=== PATIENT | female | born 1930 | race Caucasian/White ===

== ENCOUNTER 2016-09-16 06:17 | Day surgery (SDC) | payer MEDICARE, OTHER ==
--- NOTE | 2016-09-10 14:51 | PREOP HISTORY & PHYSICAL ---
HISTORY: 85 year old female here for evaluation of declining vision in both eyes over the past year or so. She is having more trouble reading ( the newspaper) as well as difficulty seeing the scrolling ermelinda on the television. She often uses a magnifying glass to read. The patient denies significant glare symptoms but does not go out at night and is no longer driving. She states that her right eye has always seen better than her left eye. She was seen last Spring by Dr. Quintero who recommended a referral for cataract evaluation. However, the patient has required recent orthopedic procedures which took precedence until now. The current glasses are about 2 years old. PAST OCULAR HISTORY: "Cataracts", Glasses OCULAR MEDICATIONS: None PAST MEDICAL HISTORY: Acquired hypothyroidism (E03.9) Recent TSH is satisfactory, continue medications as is. 2. TSH ordered in follow up, adjustments were made in the hospital. Weight is considerably decreased. Diet-controlled hyperlipidemia (E78.5) Gastroesophageal reflux disease without esophagitis (K21.9) No red flag symptoms, continue OTC PPI. Patient is very reluctant to have follow up. 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 Will be due for next Reclast infusion in July. 2. I reordered her bone density, as she did not follow through with it, and she agrees that it is very important. Paroxysmal SVT (supraventricular tachycardia) (I47.1)04/2016 Developed at [facility] after revision of total hip. Treated with adenosine, and lasted about an hour and the patient did have hypotension. TSH showed hyperthyroidism, and other contributing factors were felt to be anemia and post- operative stress. She was placed on low dose Diltiazem with good results. 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 ALLERGIES: Codeine/Codeine Derivatives (Tylenol 3, Vicodin, Percocet, Hydrocodone...)03/26 GI Distress, Urticaria FAMILY HISTORY: No Significant Family Ocular History SOCIAL HISTORY: Alcohol use Drinks Rarely. Tobacco use Never smoker. Vehicle Driving No. CURRENT MEDICATIONS: Amoxicillin (500MG Capsule, 4 Capsules Oral 1 hour before dental procedure, Taken starting 11/06/2015) Active. Aspirin EC (81MG Tablet DR, 1 (one) Oral daily, Taken starting 07/15/2016) Active. Calcium-Vitamin D ([id number] Tablet, 1 Oral two times daily, Taken starting 11/27/2011) Active. Centrum Silver (1 Oral daily) Active. DiltiaZEM CD (120MG Capsule ER 24HR, 1 (one) Capsule ER 24HR Oral daily, Taken starting 06/22/2016) Active. Levothyroxine Sodium (75MCG Tablet, 1 Oral daily, Taken starting 06/22/2016) Active. Omeprazole (20MG Capsule DR, 1 (one) Oral daily, Taken starting 04/11/2012) Active. Tylenol Extra Strength (500MG Tablet, 1 Oral as needed every 6 hours) Active. Medications Reconciled PAST SURGICAL HISTORY: [id number] OPEN REVISION OF PROCEDURE INVOLVING ACETABULAR SURFACE OF LEFT HIP PROSTHESIS ( 34163)04/2016 [id number] Left hip 1991 and 2007, after fracture. Right femur 2011 after fracture. 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 Cage. REVIEW OF SYSTEMS: General Not Present- Fever. Skin Not Present- New Lesions, Skin Cancer and Skin Problems. HEENT Present- Blurred Vision. Not Present- Decreased Hearing, Eye Pain, Sinusitis and Sleep Apnea. Respiratory Not Present- Asthma, Chronic Cough, Emphysema and Shortness of Breath. Breast Not Present- Breast Cancer. Cardiovascular Not Present- Angina, Heart Problems, Heart Stent, Hyperlipidemia and Hypertension. Gastrointestinal Present- Heartburn. Not Present- PUD. Female Genitourinary Not Present- Kidney Problems. Musculoskeletal Present- Joint Pain. Neurological Not Present- Decreased Memory, Headaches, Stroke and Vertigo. Psychiatric Not Present- Anxiety and Depression. Endocrine Present- Thyroid Problems. Not Present- Diabetes. Hematology Not Present- Bleeding Problems and Blood Clots. Note: Reviewed by Dr. Lamar. PHYSICAL EXAMINATION: Vitals (Johnnie Lamar M.D.; 08/31/2016 4:13 PM) 08/31/2016 4:12 PM Pulse: 78 (Regular) P.OX: 94% (Room air) BP: 120/85 (Sitting, Left Wrist, Small) Chest and Lung Exam Auscultation Breath sounds - Clear and Symmetric throughout. Cardiovascular Auscultation Rhythm - Regular. Heart Sounds - Normal heart sounds. Murmurs & Other Heart Sounds - Auscultation of the heart reveals - No Murmurs. OCULAR EXAMINATION: VISUAL ACUITY: with correction (Glasses) OD 20/70 OS 20/150 NEAR J3 at 14" WORKING Rx: OD +2.50 + 0.50 x 174 OS -2.00 + 1.25 x 043 ADD +2.50 (Bifocal) MANIFEST REFRACTION: OD +1.50 + 0.50 x 167 (20/60+2) Better vision in trial frames OS -3.00 + 1.25 x 060 (20/70+1) Better vision in trial frames ADD + 2.50 (J2 at 14") Better near vision in trial frames than previous Rx CONFRONTATIONAL VISUAL WILSON: Normal to counting fingers in four quadrants OU PUPILS: Round and equal OU with no afferent pupillary defect seen EXTERNAL: Normal OU EXTRA-OCULAR MUSCLES: Versions full OU - orthotropic at both distance and near SLIT LAMP EXAM: LIDS/LASHES: Normal OU CONJUNCTIVA: Quiet OU CORNEA: Clear with scant tear film OU. Healthy appearing endothelium OU AC: 1+ shallow and quiet OU IRIS: Normal OU PUPILS: Round OU - dilated widely OU LENS: 2+ nuclear sclerosis with 3+ diffuse cortical cataract changes and 2-3+ posterior sub-capsular cataract changes (especially in and superior to the visual axis OD. 3+ nuclear sclerosis with 3+ cortical and 3+ diffuse posterior sub-capsular cataract changes OS ANTERIOR VITREOUS: No anterior vitreous cells or pigment seen OU TONOMETRY: TIME: 3:29 PM OD: 10 mm Hg OS: 10 mm Hg DILATING gtt: Phenylephrine 2.5% + Tropicamide 1% FUNDUS: C/D: 0.7 OU DISCS: Sharp with clear disc margins OU MACULA: 1 disc diameter area of central geographic atrophy and pigmentary disturbance with scattered drusen OD. 0.5 disc diameter area of central geographic atrophy with drusen and moderate pigmentary disturbance OS. No evidence of choroidal neovascularization OU VESSELS: Normal OU PERIPHERY: Posterior vitreous detachment OU with no retinal breaks seen. Moderate peripheral reticular degeneration OU KERATOMETRY: OD 44.25 / 44.58 x 160 OS 43.92 / 44.37 x 167 AXIAL LENGTH: OD 23.08 +/- 0.038 OS 23.61 +/- 0.036 IMPRESSION: Posterior subcapsular age-related cataract, both eyes (H25.043) Story: Moderate to advanced cataracts OS > OD - discussed with patient today who is quite bothered by her current vision, and who would like to consider cataract surgery (OS first). She understands that her significant macular degeneration may continue to impair her vision postoperatively, despite a successful surgery. We discussed the refractive goals today and the patient would like to be corrected to a near-plano spherical equivalent postoperatively OS. 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 Discussed with patient today and I let her know that this may very likely limit her visual result after cataract surgery. The patient understands that her significant macular degeneration may continue to impair her vision postoperatively, despite successful cataract surgery. PLAN: Cataract extraction with intra-ocular lens OS first, September 16, 2016. Lid soaks and scrubs BID OU (pre-operative blepharitis protocol and antibiotic ointment instructions handout given to patient today). Erythromycin ophthalmic ointment q hs OU as blepharitis prophylaxis (an e-Rx with refills x 1 was sent to [facility] in [place] ([phone] ) today). BIOMETRY, OPHTHALMIC, BY PARTIAL COHERENCE INTERFEROMETRY (90907) Started Erythromycin 5MG/GM, Apply 1/8 inch Ointment to the eyelashes at bedtime , both eyes, 1 Tube, 08/31/2016, Ref. x1. Started Zymaxid 0.5%, 1 drop(s) four times daily to the operated eye, after surgery, 1 Bottle, 08/31/2016, Ref. x1. Started PrednisoLONE Acetate 1%, 1 drop(s) four times daily in the operated eye , after surgery, 10 Milliliter, 08/31/2016, Ref. x1. MTDD
[~2016-09-16 06:17] MED LIST: APRACLONIDINE 0.5% OPHTH 5 ML BTL OP ONE; BUPIVACAINE HCL/PF 0.75% 10 ML VIAL OP ONE; CIPROFLOXACIN 0.3% OPHTH 50 DROP/5 ML BTL OP SCH; CYCLOPENTOLATE HCL 1% OPHTH 2 ML BTL OP SCH; FLURBIPROFEN 0.03% OPHTH 2.5 ML BTL OP SCH; PHENYLEPHRINE 2.5% OPHTH 10 DROP/2 ML BTL OP SCH
[2016-09-16] MEDS ORDERED: FLURBIPROFEN 0.03% OPHTH 2.5 ML BTL ONE (06:51)
[2016-09-16] MEDS ORDERED: BUPIVACAINE HCL/PF 0.75% 10 ML VIAL ONE (06:52)
[2016-09-16] MEDS ORDERED: CIPROFLOXACIN 0.3% OPHTH 50 DROP/5 ML BTL ONE (06:52)
[2016-09-16] MEDS ORDERED: PHENYLEPHRINE 2.5% OPHTH 10 DROP/2 ML BTL ONE (06:52)
[2016-09-16] MEDS ORDERED: APRACLONIDINE 0.5% OPHTH 5 ML BTL ONE (06:52)
[2016-09-16] MEDS ORDERED: CYCLOPENTOLATE HCL 1% OPHTH 2 ML BTL ONE (06:52)
[2016-09-16] MEDS ORDERED: KETOROLAC 0.45% OPHTH 1 DROP/EACH DROPERETTE ONE (06:57)
[2016-09-16] MEDS ORDERED: LIDOCAINE HCL/PF 1% 30 ML VIAL ONE (06:57)
[2016-09-16] MEDS ORDERED: BACITRACIN OPHTH OINTMENT 3.5 GM TUBE ONE (06:57)
[2016-09-16] MEDS ORDERED: CHONDROITIN/HYALURONIDATE OPHT 0.5 ML KIT ONE (06:58)
[2016-09-16 07:35] VITALS: RESP 16; TEMP 97.9; O2SAT 90
[2016-09-16 08:44] VITALS: BP 152/84; PULSE 75
--- NOTE | 2016-09-16 15:25 | OPERATIVE REPORT ---
DATE OF SURGERY: 09/16/2016. SURGEON: Johnnie Lamar MD ANESTHESIA: Topical with monitored anesthesia care. PREOPERATIVE DIAGNOSIS: Cataract, left eye. POSTOPERATIVE DIAGNOSIS: Cataract, left eye. OPERATION PERFORMED: Cataract extraction by phacoemulsification with posterior chamber intraocular lens, left eye. COMPLICATIONS: None. PROCEDURE: The patient was brought to the operating room where she was placed in the supine position. After the instillation of additional tetracaine drops in the left eye, the eye was prepped and draped in the usual sterile ophthalmic manner. A lid speculum was placed in the left eye, after which an inferior paracentesis was fashioned with 1-mm steel keratome, and 0.2 mL of 1% nonpreserved lidocaine was injected intracamerally followed by Viscoat. A temporal clear corneal incision of 3-mm width was fashioned with a steel keratome. A continuous curvilinear capsulorrhexis was fashioned with a bent-needle cystitome and Utrata forceps under Viscoat. This was necessarily kept small as the patient had a tiny eye, and the pupil did not dilate fully. Hydrodissection was carried out with balanced salt solution on an intraocular cannula. The nucleus was noted to rotate freely. Phacoemulsification proceeded in a two-handed fashion utilizing high phacoemulsification times and reinoso, as the nucleus was noted to be 3+ dense. Residual cortical material was then removed with the automated irrigation-aspiration handpiece. A significant Descemet's scroll was noted at the internal lip of the temporal corneal wound at the end of phacoemulsification, but this was not severe enough to require an air bubble in the anterior chamber at the conclusion of the procedure. The anterior chamber and capsular bag were then reinflated with Provisc, after which an AcrySof model SA60AT foldable acrylic intraocular lens of 20.0 diopters power was placed into the capsular bag. The haptics were rotated with a Y hook and the intraocular lens was noted to center well. Residual viscoelastic was then removed with the automated irrigation-aspiration handpiece, after which the wound edges were hydrated with balanced salt solution. The intraocular pressure at the conclusion of the procedure was physiologic, and there was no evidence of wound leakage upon testing with a Weck Mary sponge. Acular drops and bacitracin ointment were placed in the left eye, and the patient was brought to the recovery area, having tolerated the procedure well. She was given full postoperative instructions. NICOLE
== END 2016-09-16 08:50 | disposition home or self-care (01) ==
LOC: SDS 06:17
PROVIDERS: ATTEND Ophthalmology
DX: H25.12 Age-related nuclear cataract, left eye (principal); E03.9 Hypothyroidism, unspecified; E78.5 Hyperlipidemia, unspecified; M15.9 Polyosteoarthritis, unspecified; M81.0 Age-related osteoporosis without current pathological fracture; I47.1 Supraventricular tachycardia; K21.9 Gastro-esophageal reflux disease without esophagitis; Z79.899 Other long term (current) drug therapy
CPT/HCPCS: 66984; J0171; V2632

== ENCOUNTER 2017-01-19 11:58 | Emergency (ER) | payer MEDICARE, OTHER ==
--- NOTE | 2017-01-19 12:40 | ER NURSING DOCUMENTATION ---
Nurse's Notes [facility] Name:Virginia Ruiz Age:86 yrs Sex:Female :1930 Arrival Date:01/19/2017 Time:11:58 Bed1 Private MD:Saira Cage Diagnosis:Arm Laceration- / Skin Tear; Steristriped Presentation: 01/19 12:01 Presenting complaint: Patient states: Arm injury. lp 12:01 Acuity: TAMMY 3 lp 12:06 Transition of care: Home. lp 12:06 Method Of Arrival: Private Vehicle lp Triage Assessment: 12:15 General: Appears in no apparent distress, Behavior is appropriate for age. Pain: lp Complains of pain in dorsal aspect of left forearm Pain currently is 2 out of 10 on a pain scale. EENT: No deficits noted. Neuro: No deficits noted. Cardiovascular: No deficits noted. Respiratory: No deficits noted. GI: No deficits noted. : No deficits noted. Derm: Skin. Musculoskeletal: No deficits noted. Injury Description: Laceration sustained to dorsal aspect of left forearm is clean, 0.5 to 2.5 cm long, is bleeding no active bleeding noted. Historical: - Allergies: Codeine; - Home Meds: 1. diltiazem HCl 120 mg oral cpER 1 cap once daily 2. levothyroxine 75 mcg oral tab 1 tab once daily 3. prednisolone acetate 1 % ophthalmic drps 1 drop 2 times per day 4. aspirin 81 mg oral TbEC 1 tab once daily 5. amoxicillin 500 mg oral tab 4 tabs Once before dental procedure 6. omeprazole 20 mg oral TbEC 7. Calcium with Vitamin D 600 mg(1,500mg) -400 unit oral tab - PMHx: Paroxysmal SVT; Alloantibody; Pulmonary Nodule; Psueophakia; OSTEOPOROSIS; Idiopathic progressive polyneuropathy; GERD; Hyperlipidemia; HYPOTHYROIDISM; HYPERTENSION; Sciatica; Malnutrition; - PSHx: Left Hip Replacement; Total knee replacement; ORIF; ; Cataract; - Tetanus: < 10 years. - Ebola Screening: : Patient negative for fever greater than or equal to 101.5 degrees Fahrenheit, and additional compatible Ebola Virus Disease symptoms. Patient denies exposure to infectious person. Patient denies travel to an Ebola-affected area in the 21 days before illness onset. . - Immunization history: Pneumococcal vaccine is up to date, Flu Vaccine < 1 year. - Social history: Smoking status: Patient states was never smoker of tobacco. Screenin:17 Infectious Disease Risk None. Abuse screen: Denies threats or abuse. Denies injuries lp from another. Nutritional screening: No deficits noted. Assessment: 12:17 See Triage Assessment done by same RN. lp Vital Signs: 12:16 BP 158 / 77; Pulse 94; Resp 16; Temp 97.5(TE); Pulse Ox 91% on R/A; Weight 54.43 kg; lp Height 5 ft. 3 in. (160.02 cm); Pain 2/10; 12:33 BP 139 / 75; Pulse 81; Resp 16; Pulse Ox 91% on R/A; lp 12:16 Body Mass Index 21.26 (54.43 kg, 160.02 cm) lp ED Course: 12:00 Patient arrived in ED. ds 12:00 Saira Cage MD is Private Physician. ds 12:01 Tiffany Fox RN is Primary Nurse. lp 12:02 Triage completed. lp 12:03 Daren Sandhu MD is Attending Physician. cd 12:[address] Sandhu notified. lp 12:17 Valuables Remains with patient Patient has correct armband on for positive lp identification. Bed in low position. Call light in reach. 12:23 Saira Cage MD is Referral Physician. cd 12:34 Wound care to skin tear located on dorsal aspect of left forearm was cleaned with lp Hibiclens, dressed with Steri-strips to approximate wound then non-adherent pads with keflex and coban. Administered Medications: No medications were administered Outcome: 12:23 Discharge ordered by . cd 12:35 Discharged to home via wheelchair. lp 12:35 Condition: good 12:35 Instructed on discharge instructions, follow up and referral plans. wound care. 12:39 Patient left the ED. lp 01/20 14:24 Discharge F/U Call: Unable to reach: no answer st Signatures: Renee Varma RN RN st Pavlish, Lena, RN RN lp Srot, Blanca, Reg Reg ds Daren Sandhu MD MD cd
--- NOTE | 2017-01-19 12:40 | ER PHYSICIAN DOCUMENTATION ---
Physician Documentation [facility] Name:Virginia Ruiz Age:86 yrs Sex:Female :1930 Arrival Date:01/19/2017 Time:11:58 Bed1 Private MD:Saira Cage ED, Chris Disposition: 01/19/17 12:23 Discharged to Home/Self Care. Impression: Arm Laceration - / Skin Tear; Steristriped. - Condition is Good. - Discharge Instructions: LACERATION, Extrem (suture, staple or tape). - Medical Reconciliation form form. - Follow up: Saira Cage MD; When: 7 - 10 days; Reason: Recheck today's complaints, Continuance of care. - Problem is new. - Symptoms have improved. - Notes: Keep dry and covered. Allow the Steristrips to fall off on their own. HPI: 01/19 12:00 This 86 yrs old Female presents to ER via Private Vehicle with complaints of cd Wrist Injury - LEFT. 12:00 The patient or guardian reports a laceration, irregular, clean, skin tear. The cd complaints affect the left wrist diffusely. Context: The problem was sustained at home, resulted from a direct blow. Associated signs and symptoms: The patient has no apparent associated signs or symptoms. Historical: - Allergies: Codeine; - Home Meds: 1. diltiazem HCl 120 mg oral cpER 1 cap once daily 2. levothyroxine 75 mcg oral tab 1 tab once daily 3. prednisolone acetate 1 % ophthalmic drps 1 drop 2 times per day 4. aspirin 81 mg oral TbEC 1 tab once daily 5. amoxicillin 500 mg oral tab 4 tabs Once before dental procedure 6. omeprazole 20 mg oral TbEC 7. Calcium with Vitamin D 600 mg(1,500mg) -400 unit oral tab - PMHx: Paroxysmal SVT; Alloantibody; Pulmonary Nodule; Psueophakia; OSTEOPOROSIS; Idiopathic progressive polyneuropathy; GERD; Hyperlipidemia; HYPOTHYROIDISM; HYPERTENSION; Sciatica; Malnutrition; - PSHx: Left Hip Replacement; Total knee replacement; ORIF; ; Cataract; - Tetanus: < 10 years. - Ebola Screening: : Patient negative for fever greater than or equal to 101.5 degrees Fahrenheit, and additional compatible Ebola Virus Disease symptoms. Patient denies exposure to infectious person. Patient denies travel to an Ebola-affected area in the 21 days before illness onset. . - Immunization history: Pneumococcal vaccine is up to date, Flu Vaccine < 1 year. - Social history: Smoking status: Patient states was never smoker of tobacco. ROS: 12:10 MS/extremity: Positive for laceration, of the dorsal aspect of left forearm. cd 12:10 Skin: Positive for skin tear.. Exam: 12:10 Hand exam: Exam is positive for laceration, ROM: no acute changes, Circulation is cd intact in all extremities. sensation intact. Tendon exam: specific tendon testing normal through active and passive range of motion 12:10 Skin: Appearance: normal except for affected area. 12:10 Constitutional: The patient appears in no acute distress. Vital Signs: 12:16 BP 158 / 77; Pulse 94; Resp 16; Temp 97.5(TE); Pulse Ox 91% on R/A; Weight 54.43 kg; lp Height 5 ft. 3 in. (160.02 cm); Pain 2/10; 12:33 BP 139 / 75; Pulse 81; Resp 16; Pulse Ox 91% on R/A; lp 12:16 Body Mass Index 21.26 (54.43 kg, 160.02 cm) lp Laceration: 12:25 Wound Repair of 4cm ( 1.6in ) subcutaneous laceration to dorsal aspect of left forearm. cd Distal neuro/vascular/tendon intact. Wound prep: Simple cleansing with hibiclenz by nurse. Skin closed with 10 1-0 Steri-strips using sterile technique. Dressed with 4x4's, Alfonso. Patient tolerated well. MDM: 12:03 Patient medically screened. cd 12:25 Data reviewed: and as a result, I will discharge patient. cd Dispensed Medications: No medications were administered Signatures: Tiffany Fox RN RN lp Daren Sandhu MD MD cd
== END 2017-01-19 12:40 | disposition home or self-care (01) ==
LOC: ER 11:58
DX: S51.812A Laceration without foreign body of left forearm, initial encounter (principal); W22.8XXA Striking against or struck by other objects, initial encounter; Y92.019 Unspecified place in single-family (private) house as the place of occurrence of the external cause; I10 Essential (primary) hypertension; Z79.899 Other long term (current) drug therapy; Z79.82 Long term (current) use of aspirin
CPT/HCPCS: 12002; 99281; 99283